=== PATIENT | male | born 1960 | race Caucasian/White ===

== ENCOUNTER 2021-05-01 18:01 | Inpatient (IN) | payer BC, SELFPAY ==
--- NOTE | ~2021-05-01 | XR_ITS ---
EXAMINATION: XR chest 2V DATE: 05/03/2021 13:12 INDICATION: Hypoxia. TECHNIQUE: Frontal and lateral views of the chest were obtained. COMPARISON: Chest 2 views 05/01/21 FINDINGS: Again seen is mild elevation of right hemidiaphragm. No pneumonia, pleural effusion, or pne umothorax. Cardiomegaly is noted. IMPRESSION: 1. Cardiomegaly. Reviewed, dictated and finalized at location A. IMPRESSION: 1. Cardiomegaly.
--- NOTE | ~2021-05-01 | XR_ITS ---
XR chest 2V 05/01/2021 18:46 Indication: Shortness of breath for one week. History of [place]. COPD. Atrial fibrillation. Procedure: PA and lateral views of the chest Comparison: 09/24/2008 Findings: Cardiomegaly. Mild interstitial edema. Superimposed pneumonia not excluded. No pleural effu tiffani. Elevated right diaphragm. No pneumothorax. Impression: 1: Cardiomegaly with mild interstitial edema. Cannot exclude superimposed pneumonia. Reviewed, dictated and finalized at location A. Impression: 1: Cardiomegaly with mild interstitial edema. Cannot exclude superimposed pneum onia.
--- NOTE | 2021-05-01 18:03 | ECG_ITS ---
Measurements Intervals [place] Rate: 89 P: DC: 0 QRS: 157 QRSD: 38 T: 37 QT: 303 QTc: 370 Interpretive Statements ATRIAL FIBRILLATION WITH RAPID VENTRICULAR RESPONSE INCOMPLETE RIGHT BUNDLE BRANCH BLOCK LOW QRS VOLTAGE IN PRECORDIAL LEADS BORDERLINE T WAVE ABNORMALITY- INFERIOR LEADS BASELINE ARTIFACT- II, III, AVR, AVL, V1, V3-V5 ABNORMAL ECG Electronically Signed On 05-01-2021 20:38:11 CDT by Ar CHAVEZ
[2021-05-01 18:07] VITALS: BP 166/101; PULSE 71; RESP 20; TEMP 36.8; O2SAT 96
[2021-05-01 18:30] LABS: Basophils Absolute Auto 0.1 K/mm3 (0.0-0.1); Basophils Percent Auto 0.9 % (0.2-1.2); Eosinophils Absolute Auto 0.2 K/mm3 (0-0.3); Eosinophils Percent Auto 2.3 % (0-4.4); Hematocrit 44.7 % (42.0-52.0); Hemoglobin 14.1 g/dL (14.0-18.0); Immature Granulocyte Absolute 0.03 K/mm3 (0.00-0.031); Immature Granulocyte Percent A 0.4 % (0-0.5); Lymphocytes Absolute Auto 1.48 K/mm3 (0.9-3.2); Lymphocytes Percent Auto 19.1 % (18.3-44.2); Mean Corpuscular HGB Conc 31.5 g/dl (32-36); Mean Platelet Volume 11.6 fl (7.4-10.4); Monocytes Absolute Auto 0.4 K/mm3 (0.1-0.6); Monocytes Percent Auto 5.4 % (2.6-8.5); Neutrophils Absolute Auto 5.6 K/mm3 (1.3-6.7); Neutrophils Percent Auto 71.9 % (45.5-73.1); Platelet Count Result 208 k/mm3 (150-375); Red Blood Count 4.86 M/mm3 (4.6-6.20); Red Cell Distribution Width 15.1 % (11.5-14.5); White Blood Count 7.8 K/mm3 (4.5-10.0)
[2021-05-01 18:40] LABS: Anion Gap 11 mmol/L (8-16); Blood Urea Nitrogen 29 mg/dL (9-20); Calcium 9.6 mg/dL (8.4-10.2); Carbon Dioxide 25 mmol/L (22-30); Chloride 104 mmol/L (98-107); Estimated CRCL calculation 91 ml/min; Estimated Glomerular Filt Rate > 60; Glucose 132 mg/dL (65-110); Potassium 3.9 mmol/L (3.4-5.0); Sodium 140 mmol/L (137-145)
[2021-05-01 19:56] VITALS: BP 144/86; PULSE 113; RESP 22; TEMP 36.4; O2SAT 94
[2021-05-01 20:35] VITALS: BP 136/105; PULSE 130; O2SAT 95
[2021-05-01 21:13] VITALS: BP 139/98; PULSE 117; RESP 26; O2SAT 96
[2021-05-01] MEDS: SODIUM CHLORIDE 0.9% IV 500 ML 999 ML IV CONT (21:15)
[2021-05-01] MEDS: METOPROLOL TARTRATE INJ 5 MG/5 ML VIAL IV PUSH (21:16)
--- NOTE | 2021-05-01 21:22 | ED.SOB ---
HPI - SOB/Dyspnea General Chief Complaint: Shortness of Breath/Dyspnea Stated Complaint: sob Time Seen by Provider: 05/01/21 20:56 History of Present Illness HPI Narrative: Patient presents with shortness of breath. Pain for shortness of breath been present for approximately 1 week. Per symptoms and progressively worse last night is unable to sleep so he came in for evaluation today. Reports a history of paroxysmal A. fib and felt his heart rate was fast today is concerned he is in A. fib again. He denies any focal chest pain, lightheadedness, recent fevers, cough, congestion. Denies any abdominal pain. Related Data Home Medications Medication Instructions Recorded Confirmed aspirin 81 mg tablet,delayed 81 mg PO DAILY 10/29/19 05/02/21 release fenofibric acid (choline) 135 mg PO HS 05/01/21 05/02/21 metformin 500 mg PO HS 05/01/21 05/02/21 ramipril 10 mg PO DAILY 05/01/21 05/02/21 rivaroxaban [Xarelto] 20 mg PO HS 05/01/21 05/01/21 simvastatin 20 mg PO HS 05/01/21 05/02/21 Allergies Allergy/AdvReac Type Severity Reaction Status Date / Time Tetanus Vaccines and Toxoid Allergy Mild Rash Verified 02/28/21 10:53 Review of Systems Review of Systems: CONSTITUTIONAL: Denies fever, chills, or sweats. EYES: Denies visual changes, redness, or discharge. ENT: Denies rhinorrhea, congestion, sore throat, or otalgia. CARDIOVASCULAR: Denies chest pain, palpitations, or edema. RESPIRATORY: Denies cough. GASTROINTESTINAL: Denies abdominal pain, nausea, vomiting, or diarrhea. GENITOURINARY: Denies dysuria or hematuria. SKIN: Denies rash or itching. MUSCULOSKELETAL: Denies back pain, joint pain, or myalgia. NEUROLOGIC: Denies headache, numbness, dizziness, or weakness. PSYCHIATRIC: Denies anxiety or depression. All systems reviewed & are unremarkable except as noted in HPI and below [facility] Past Medical History Medical History (Updated 05/02/21 @ 05:40 by Emma Brady DO) Diastolic dysfunction Echocardiogram October 2020: EF 69%, severe left atrial enlargement, grade 1 diastolic dysfunction Essential (primary) hypertension Morbid obesity with BMI of 40.0-44.9, adult Obstructive sleep apnea CPAP of 20 Paroxysmal A-fib (10/2020) Prediabetes Umbilical hernia without obstruction or gangrene Not repaired Surgical History Surgical History (Updated 05/02/21 @ 05:35 by Emma Brady DO) History of cardiac catheterization Two stents placed [address] Bright History of tonsillectomy and adenoidectomy Family History Family History (Updated 05/02/21 @ 05:36 by Emma Brady DO) Grandparent Family history of alcoholism Family history of hepatitis Mother Acute myocardial infarction, Onset Age: 72 Father Primary bone cancer, Onset Age: 72 Social History Social History (Updated 05/02/21 @ 05:29 by Emma Brady DO) Social History: He lives in [place] with his . He is a CPA. He used to smoke a pack of cigarettes per day but quit 2008 when he had his heart attack. He used to drink quite heavily in consumed a case of beer over the weekend but quit drinking in 2008 as well. He denies any illicit substance use. Primary care physician: Dr. Vicente Salgado Code status: Full code Surrogate decision maker: Smoking packs per day: 1 Smoking cigarettes per day: 20.0 Years smoked: 30 Smoking pack-years: 30.00 Smoking status: Former smoker Smoking end date: 08/25/07 Alcohol intake: former Substance use: never Other substance usage details: quit drinking in 2008 Spiritual care concerns: No Exam Narrative: GENERAL: Well-appearing, well-nourished, and in no acute distress. HEAD: Normocephalic, atraumatic. EYES: PERRLA and EOMI. ENT: Nares clear, no rhinorrhea or epistaxis. Mucous membranes moist. NECK: Supple. No masses. No JVD CHEST: Clear to auscultation. No respiratory distress. No wheezes rales or rhonchi HEART:
[2021-05-01] MEDS: dilTIAZem HCl INJ 25 MG/5 ML VIAL 10 MG IV PUSH (22:28)
[2021-05-01 22:29] VITALS: BP 112/85; PULSE 110
[2021-05-01 22:33] VITALS: BP 112/85; PULSE 119; RESP 18
[2021-05-01 22:55] LABS: Troponin I < 0.012 ng/mL (0.000-0.034)
[2021-05-02] VITALS (21 sets, daily range): BP systolic 116–149; BP diastolic 71–117; PULSE 88–132; RESP 16–24; TEMP 35.5–36.9; O2SAT 92–99; BMI 49.9
--- NOTE | 2021-05-02 02:02 | ADMGEN ---
This patient, Juan Ariza, was admitted to IMU Room 214-01. Patient/family oriented to hospital policies and general routines including ID bracelet, bed and alarms, visiting hours, pain management, procedures, bathroom and other care routines, personal items, smoking policy, room service/diet, and visiting hours. Information on how to activate the Rapid Response Team has been discussed. Patient/Family are encouraged to report perceived risks to care and to ask questions if they do not understand what they are told or what they should do. report Gerald ST approx [id number]
[2021-05-02 03:03] LABS: Troponin I < 0.012 ng/mL (0.000-0.034)
--- NOTE | 2021-05-02 04:24 | PM.IMHP ---
H&P: HPI History of Present Illness Date/Time: 05/02/21 04:24 Chief Complaint: Shortness of breath Narrative: 60-year-old male with past medical history of paroxysmal atrial fibrillation, coronary artery disease, diastolic dysfunction, morbid obesity and obstructive sleep apnea who presented to the ER with shortness of breath. He reports dyspnea worse with exertion for the last week. He has developed orthopnea over the last couple of days which has made it difficult for him to sleep and he so he decided to come to the ER for evaluation. He had not been checking his blood pressure pulse but checked it before coming to the ER and noted that his heart rate was high. His who is a retired nurse insisted that he come in for evaluation. He denies any chest pain, palpitations or lower extremity swelling. He does not check his weight. He has been compliant with his home beta-aravind and Xarelto. He has not missed any doses. He has not had any fevers or chills. He received his Pfizer COVID vaccine in September and October. Review of Systems Review of Systems: 12 systems were reviewed with pertinent positives and negatives per HPI. Except as documented in the HPI, all other systems were reviewed and are negative. [facility] Past Medical History Medical History (Updated 05/02/21 @ 05:27 by Emma Brady DO) Diastolic dysfunction Essential (primary) hypertension Morbid obesity with BMI of 40.0-44.9, adult Obstructive sleep apnea CPAP of 20 Paroxysmal A-fib Prediabetes Umbilical hernia without obstruction or gangrene Surgical History Surgical History (Updated 05/02/21 @ 04:29 by Emma Brady DO) History of cardiac catheterization Family History Family History Grandparent Family history of alcoholism Family history of hepatitis Social History Social History (Updated 05/02/21 @ 05:29 by Emma Brady DO) Social History: He lives in [place] with his . He is a CPA. He used to smoke a pack of cigarettes per day but quit 2008 when he had his heart attack. He used to drink quite heavily in consumed a case of beer over the weekend but quit drinking in 2008 as well. He denies any illicit substance use. Primary care physician: Dr. Vicente Salgado Code status: Full code Surrogate decision maker: Smoking packs per day: 1 Smoking cigarettes per day: 20.0 Years smoked: 30 Smoking pack-years: 30.00 Smoking status: Former smoker Smoking end date: 08/25/07 Alcohol intake: former Substance use: never Other substance usage details: quit drinking in 2008 Spiritual care concerns: No Meds Home Medications and Allergies Home Medications Medication Instructions Recorded Confirmed Type aspirin 81 mg tablet,delayed 81 mg PO DAILY 10/29/19 05/02/21 History release hydrochlorothiazide 12.5 mg tablet 12.5 mg PO DAILY #90 tablet 01/12/21 05/02/21 Rx metoprolol tartrate 25 mg tablet 25 mg PO DAILY #180 tablet 02/12/21 05/02/21 Rx fenofibric acid (choline) 135 mg PO HS 05/01/21 05/02/21 History metformin 500 mg PO HS 05/01/21 05/02/21 History ramipril 10 mg PO DAILY 05/01/21 05/02/21 History rivaroxaban [Xarelto] 20 mg PO HS 05/01/21 05/01/21 History simvastatin 20 mg PO HS 05/01/21 05/02/21 History Allergies Allergy/AdvReac Type Severity Reaction Status Date / Time Tetanus Vaccines and Toxoid Allergy Mild Rash Verified 02/28/21 10:53 Vital Signs Vital Signs - 24 hr 05/01/21 18:07 05/01/21 19:56 05/01/21 20:35 Temperature 98.2 F 97.5 F L Pulse Rate 71 113 H 130 H Respiratory Rate 20 22 H Blood Pressure 166/101 H 144/86 H 136/105 H Pulse Oximetry 96 94 95 05/01/21 21:13 05/01/21 22:29 05/01/21 22:33 Temperature Pulse Rate 117 H 110 H 119 H Respiratory Rate 26 H 18 Blood Pressure 139/98 H 112/85 112/85 Pulse Oximetry 96 05/02/21 00:10 05/02/21 01:27 05/02/21 01:56 Temperature 98.0 F
[2021-05-02 05:42] LABS: Anion Gap 9 mmol/L (8-16); Blood Urea Nitrogen 25 mg/dL (9-20); Calcium 9.1 mg/dL (8.4-10.2); Carbon Dioxide 24 mmol/L (22-30); Chloride 104 mmol/L (98-107); Estimated CRCL calculation 110 ml/min; Estimated Glomerular Filt Rate > 60; Glucose 100 mg/dL (65-110); Magnesium 1.6 mg/dL (1.6-2.3); Potassium 3.6 mmol/L (3.4-5.0); Sodium 137 mmol/L (137-145)
[2021-05-02 05:46] LABS: Troponin I < 0.012 ng/mL (0.000-0.034)
[2021-05-02] MEDS: FUROSEMIDE INJ 40 MG/4 ML VIAL IV PUSH (06:55)
[2021-05-02] MEDS: METOPROLOL TARTRATE 25 MG TABLET PO (10:11)
[2021-05-02] MEDS: ASPIRIN 81 MG ENTERIC TABLET PO (10:12)
[2021-05-02] MEDS: ramipriL 5 MG CAPSULE 10 MG PO (10:12)
[2021-05-02] MEDS: SODIUM CHLORIDE 0.9% IV 1,000 ML 125 ML IV CONT (10:14)
--- NOTE | 2021-05-02 12:25 | PM.CNCAR ---
Assessment and Plan Additional Plan 60-year-old man with more remote history of coronary disease also with a history of morbid obesity sleep apnea and paroxysmal atrial fibrillator he had a has a symptomatic recurrence of atrial fib. I would recommend advancing his antiarrhythmic treatment from standard metoprolol to sotalol. I will start that as soon as possible hopefully after a couple of doses of sotalol he will convert back to sinus rhythm. Systemic anticoagulation with Xarelto is already on board. If he does not convert within a couple of days of starting sotalol we will do an electrical cardioversion before the end of the week. Vicente Bright MD [facility] History of Present Illness History of Present Illness Consult date/time: 05/02/21 12:25 Consult reason: atrial fibrillation Reason For Visit: Afib w/ RVR Narrative: This is a 60-year-old man who I am well familiar with with a history of coronary disease and atrial fibrillation. I am seeing him today at the request of the hospitalist because of a symptomatic recurrence of atrial fib. He states that he was in his usual state of what he thinks is rather good health when of but a week ago he started to notice increasing exertional shortness of breath particularly with activities as stair climbing at home he will become were rather short of breath at the top of the staircase. He was not really aware of his pulse being irregular but because of this he came to the emergency room. He was found to have atrial fib with a moderately rapid ventricular response he was of course placed on intravenous diltiazem and admitted to the hospital. Patient has a history of atrial fibrillation and has been treated with metoprolol and Xarelto as an outpatient. He has a history of coronary artery disease with previous inferior wall infarction treated with angioplasty and stenting of his right coronary artery in . He failed follow-up for a number of years but had an episode of atrial fibrillation in 2020. He was placed on metoprolol and Xarelto he has been back in sinus rhythm and has been doing well he was last seen by me in the office in November of this year which time he was in sinus rhythm and had no complaints. His other principal comorbidity is morbid obesity and sleep apnea. He reports to be compliant with his CPAP. He is concerned that despite the fact that he request of what he had did not receive a CPAP device in his room last night and so he hardly get any sleep. Review of Systems Constitutional: Constitutional: Reports no additional constitutional complaints Eyes: Eyes: Reports no additional eye complaints ENT: Reports system reviewed and no additional complaints, except as documented Cardiovascular: Cardiovascular: Reports as per HPI Respiratory: Respiratory: Reports as per HPI Gastrointestinal: Gastrointestinal: Reports no additional gastrointestinal complaints Musculoskeletal: Musculoskeletal: Reports no additional musculoskeletal complaints Integumentary/Breasts: Skin/Breast: Reports system reviewed and no additional complaints, except as docu Neurologic: Reports system reviewed and no additional complaints, except as documented Psychiatric: Psychiatric: Reports no additional psychiatric complaints Endocrine: Endocrine: Reports no additional endocrine complaints Hematologic/Lymphatic: Hematologic/Lymphatic: Reports no additional hematologic/lymphatic complaints Allergic/Immunologic: Allergic/Immunologic: Reports no additional allergic/immunologic complaints [facility] Past Medical History Medical History (Updated 05/02/21 @ 05:40 by Emma Brady, DO) Diastolic dysfunction Echocardiogram October 2020: EF 69%, severe left atrial enlargement, grade 1 diastolic dysfunction Essential (primary) hypertension Morbid obesity with BMI of 40.0-44.9, adult Obstructive sleep apnea CPAP of 20 Paroxysmal A-fib (10/2020) Prediabetes Umbilical hernia without obstruction or gangrene Not re
[2021-05-02] MEDS: SOTALOL HCL 80 MG TABLET PO ×2 (13:38→20:22)
--- NOTE | 2021-05-02 14:05 | PM.IMPN ---
Progress Note: A&P Assessment and Plan (1) Atrial fibrillation with RVR: Code(s): I48.91 - Unspecified atrial fibrillation Status: Acute Assessment and Plan: Patient presents to the ED with complaints of SOB and found to have AFib/RVR. EKG confirned AFib. He was given Diltiazem 10mg once then on a Cardizem drip. Heart rate improved. He has been compliant with his Xarelto. He was also continued on his metoprolol. He was admitted to the IMU. He was seen by Cardiology. After the risks/benefits discussed, his Metoprolol was changed to Sotalol. Xarelto has been continued. Patient had recent echocardiogram as outpatient so no need to repeat. Check TSH (2) Pulmonary edema: Code(s): J81.1 - Chronic pulmonary edema Status: Acute Assessment and Plan: CXR on admission showing cardiomegaly with mild interstitial edema. Concern for high-output heart failure from recurrent paroxysmal atrial fibrillation. He was given one dose of IV Lasix on admission. He is stable and lying flat in bed. He is on IV fluids which we will stop since he is eating well. (3) Obstructive sleep apnea: Code(s): G47.33 - Obstructive sleep apnea (adult) (pediatric) Status: Acute Assessment and Plan: Stable. Auto titrating NIV has been ordered. (4) Essential (primary) hypertension: Code(s): I10 - Essential (primary) hypertension Status: Acute Assessment and Plan: Patient's blood pressure was reviewed on 05/02 Blood pressure reasonably well controlled. HCTZ on hold due to the need for possible higher beta aravind dosing. Will continue current medications. Resume HCTZ if needed. (5) Morbid obesity with BMI of 40.0-44.9, adult: Code(s): E66.01 - Morbid (severe) obesity due to excess calories; Z68.41 - Body mass index [BMI]40.0-44.9, adult Status: Acute Assessment and Plan: BMI 50. This complicates his other medical problems. Healthy lifestyle encouraged. (6) DVT prophylaxis: Code(s): Z29.9 - Encounter for prophylactic measures, unspecified Status: Acute Assessment and Plan: Xarelto Subjective Date/time seen: 05/02/21 14:05 Interval history: 60yo male with SAI, morbid obesity and pAFib here for shortness of breath and found to have recurrent AFib/RVR No complaints. No CP. SOB resolved. Has not been up much. Did not have the NIV available last night. Eating normally without n/v. Compliant with medications at home. No exposures to COVID. Had COVID vaccine in September. No anosmia or dysgeusia. Exam Narrative: AF 97.5 127/94 99 20 92 Gen - NARD lying flat in bed Chest - few basilar rhonchi, nml RR CV - irregular; Tele showing AFib with RVR; HR better Abd - Soft, obese, NT, glenroy-umbilical hernia noted that was easily reducible Ext - No pitting pedal edema Neuro - Alert and oriented. Nonfocal exam. Psych - Nml mood and affect Skin - Warm and dry Objective Data Vital Signs Vital Signs: Vital Signs - 24 hr 05/01/21 18:07 05/01/21 19:56 05/01/21 20:35 Temperature 98.2 F 97.5 F L Pulse Rate 71 113 H 130 H Respiratory Rate 20 22 H Blood Pressure 166/101 H 144/86 H 136/105 H Pulse Oximetry 96 94 95 05/01/21 21:13 05/01/21 22:29 05/01/21 22:33 Temperature Pulse Rate 117 H 110 H 119 H Respiratory Rate 26 H 18 Blood Pressure 139/98 H 112/85 112/85 Pulse Oximetry 96 05/02/21 00:10 05/02/21 01:27 05/02/21 01:56 Temperature 98.0 F Pulse Rate 103 H 108 H 132 H Respiratory Rate 18 24 H 20 Blood Pressure 135/100 H 147/115 H 146/117 H Pulse Oximetry 94 94 94 05/02/21 02:00 05/02/21 04:00 05/02/21 06:00 Temperature 98.0 F Pulse Rate 98 107 H 116 H Respiratory Rate 18 Blood Pressure 116/71 Pulse Oximetry 99 05/02/21 08:00 05/02/21 08:19 05/02/21 10:00 Temperature 97.5 F L Pulse Rate 108 H 95 93 Respiratory Rate 24 H Blood Pressure 131/94 H Pulse Oximetry 92 05/02/21 10:11 09/0
--- NOTE | 2021-05-02 16:07 | ECG_ITS ---
Measurements Intervals [place] Rate: 84 P: 31 SC: 234 QRS: 21 QRSD: 89 T: 21 QT: 381 QTc: 453 Interpretive Statements ATRIAL FIBRILLATION INCOMPLETE RIGHT BUNDLE BRANCH BLOCK LOW QRS VOLTAGE IN PRECORDIAL LEADS BORDERLINE ST-T WAVE ABNORMALITY- ANTERIOR LEADS BASELINE ARTIFACT- I, III, AVL ABNORMAL ECG Electronically Signed On 05-03-2021 10:02:24 CDT by Ar Cuadra D.O.
[2021-05-02] MEDS: MAGNESIUM OXIDE 400 MG TABLET PO (16:24)
--- NOTE | 2021-05-02 16:32 | PC.NURSE ---
This patient, Juan Ariza, was received from IMU on 05/02/21 at 1632. Patient/family oriented to unit policies and routines
--- NOTE | 2021-05-02 16:37 | PC.NURSE ---
This patient, Juan Ariza, was transferred to [facility] on 05/02/21 at 1638. Personal belongings sent with patient. Report given to MACIEL Dumas. Appropriate documentation sent with patient.
[2021-05-02] MEDS: FENOFIBRATE NANOCRYSTALLIZED 145 MG TABLET PO (20:22)
[2021-05-02] MEDS: metFORMIN HCL 500 MG TABLET PO (20:22)
[2021-05-02] MEDS: RIVAROXABAN 20 MG TABLET PO (20:22)
[2021-05-02] MEDS: SIMVASTATIN 20 MG TABLET PO (20:22)
--- NOTE | 2021-05-02 22:52 | ECG_ITS ---
Measurements Intervals [place] Rate: 105 P: RI: 0 QRS: 21 QRSD: 94 T: 28 QT: 353 QTc: 467 Interpretive Statements ATRIAL FIBRILLATION WITH RAPID VENTRICULAR RESPONSE DELAYED PRECORDIAL R/S TRANSITION LOW QRS VOLTAGE IN PRECORDIAL LEADS BASELINE ARTIFACT- I, III, AVR, AVL, AVF, V4-V6 ABNORMAL ECG Electronically Signed On 05-03-2021 8:27:50 CDT by Ar Cuadra D.O.
[2021-05-03] VITALS (14 sets, daily range): BP systolic 129–162; BP diastolic 87–129; PULSE 82–122; RESP 16–23; TEMP 36.1–36.7; O2SAT 90–92
[2021-05-03 07:23] LABS: Anion Gap 9 mmol/L (8-16); Blood Urea Nitrogen 29 mg/dL (9-20); Carbon Dioxide 25 mmol/L (22-30); Chloride 104 mmol/L (98-107); Estimated CRCL calculation 110 ml/min; Estimated Glomerular Filt Rate > 60; Glucose 99 mg/dL (65-110); Sodium 138 mmol/L (137-145)
--- NOTE | 2021-05-03 07:38 | ECG_ITS ---
Measurements Intervals [place] Rate: 92 P: ND: 0 QRS: 15 QRSD: 113 T: 13 QT: 383 QTc: 476 Interpretive Statements ATRIAL FIBRILLATION INCOMPLETE RIGHT BUNDLE BRANCH BLOCK LOW QRS VOLTAGE IN PRECORDIAL LEADS BORDERLINE T WAVE ABNORMALITY- ANT/INF LEADS BASELINE ARTIFACT- I, II, AVR ABNORMAL ECG Electronically Signed On 05-03-2021 8:27:41 CDT by Ar Cuadra D.O.
[2021-05-03] MEDS: ramipriL 5 MG CAPSULE 10 MG PO (08:21)
[2021-05-03] MEDS: ASPIRIN 81 MG ENTERIC TABLET PO (08:21)
[2021-05-03] MEDS: MAGNESIUM OXIDE 400 MG TABLET PO (08:21)
[2021-05-03] MEDS: SOTALOL HCL 80 MG TABLET PO ×2 (08:22→21:05)
--- NOTE | 2021-05-03 10:20 | ECG_ITS ---
Measurements Intervals [place] Rate: 102 P: [place]: 0 QRS: 1 QRSD: 101 T: 11 QT: 381 QTc: 497 Interpretive Statements ATRIAL FIBRILLATION WITH RAPID VENTRICULAR RESPONSE INCOMPLETE RIGHT BUNDLE BRANCH BLOCK DELAYED PRECORDIAL R/S TRANSITION LOW QRS VOLTAGE IN PRECORDIAL LEADS BASELINE ARTIFACT- I, II, AVR, AVF ABNORMAL ECG Electronically Signed On 05-03-2021 10:52:30 CDT by Ar Cuadra D.O.
--- NOTE | 2021-05-03 10:56 | PM.IMPN ---
Progress Note: A&P Assessment and Plan (1) Atrial fibrillation with RVR: Code(s): I48.91 - Unspecified atrial fibrillation Status: Acute Assessment and Plan: Patient has a hx of AFib and is on Xarelto and Metoprolol. Patient presents to the ED with complaints of SOB and found to have AFib/RVR. EKG confirmed AFib. He was given Diltiazem 10mg once then on a Cardizem drip. Heart rate improved. He has been compliant with his Xarelto and his metoprolol. He was admitted to the IMU. TSH normal. He was seen by Cardiology. After the risks/benefits discussed, his Metoprolol was changed to Sotalol and diltiazem stopped. Xarelto has been continued. Patient had recent echocardiogram as outpatient so no need to repeat. EKG reviewed from today with AFib and QTc 476 (2nd EKG today showing QTc 497 now). (2) Pulmonary edema: Code(s): J81.1 - Chronic pulmonary edema Status: Acute Assessment and Plan: CXR on admission showing cardiomegaly with mild interstitial edema. Concern for high-output heart failure from recurrent paroxysmal atrial fibrillation. He was given one dose of IV Lasix on admission. He is stable while awake but needs O2 at night presumably. He was on IV fluids which was stopped. Repeat CXR. (3) Obstructive sleep apnea: Code(s): G47.33 - Obstructive sleep apnea (adult) (pediatric) Status: Acute Assessment and Plan: Stable. Auto titrating NIV has been ordered. He presumably had hypoxia overnight requiring O2 bleed in but do not see this documented. Will discuss with respiratory therapist to determine who about to test for this. Most likely will need apnea link with CPAP in place to monitor for hypoxia. If hypoxia noted, then will need to set up home O2 at discharge. Repeat CXR to exclude other reasons for hypoxia. (4) Essential (primary) hypertension: Code(s): I10 - Essential (primary) hypertension Status: Acute Assessment and Plan: Patient's blood pressure was reviewed on 05/03 Blood pressure elevated at times. HCTZ on hold due to the need for possible higher BP. Will continue current medications and resume HCTZ. (5) Morbid obesity with BMI of 40.0-44.9, adult: Code(s): E66.01 - Morbid (severe) obesity due to excess calories; Z68.41 - Body mass index [BMI]40.0-44.9, adult Status: Acute Assessment and Plan: BMI 50. This complicates his other medical problems. Healthy lifestyle encouraged. (6) DVT prophylaxis: Code(s): Z29.9 - Encounter for prophylactic measures, unspecified Status: Acute Assessment and Plan: [place] Subjective Date/time seen: 05/03/21 10:56 Interval history: 60yo male with SAI, morbid obesity and pAFib here for shortness of breath and found to have recurrent AFib/RVR No complaints today. No SOB or VICENTE. No CP. He did have hypoxia overnight requiring O2 bleed in per patient. Eating well Exam Narrative: AF 97.4 129/93 92 20 91% ra Gen - NARD lying semi-recumbent in bed Chest - few basilar rhonchi o/w clear, nml RR CV - irregularly irregular; Tele showing AFib with occasional RVR but HR better controlled overall Abd - Soft, obese, NT, large glenroy-umbilical hernia noted Ext - No pitting pedal edema Psych - Nml mood and affect Skin - Warm and dry Objective Data Vital Signs Vital Signs: Vital Signs - 24 hr 05/02/21 12:00 05/02/21 12:18 05/02/21 13:38 Temperature 97.5 F L Pulse Rate 102 H 112 H 99 Respiratory Rate 20 Blood Pressure 127/94 H Pulse Oximetry 92 05/02/21 14:00 05/02/21 16:00 05/02/21 16:42 Temperature 96 F L Pulse Rate 105 H 95 91 Respiratory Rate 22 H Blood Pressure 149/94 H Pulse Oximetry 92 05/02/21 18:00 05/02/21 20:00 05/02/21 20:22 Temperature 97.8 F Pulse Rate 106 H 88 93 Respiratory Rate 16 Blood Pressure 132/93 H Pulse Oximetry 92 05/02/21 21:09 05/02/21 23:07 05/03/21 02:00 Temperature 98.5 F Pulse
--- NOTE | 2021-05-03 12:54 | PC.NURSE ---
1100 Dr Weeks here to see patient, informed her of c/o chest pain
--- NOTE | 2021-05-03 13:13 | PM.PNCARD ---
Progress Note: A&P Assessment and Plan (1) Paroxysmal A-fib: Onset Date: 10/2020 Code(s): I48.0 - Paroxysmal atrial fibrillation Status: Acute Assessment and Plan: Recurrent AFib RVR. Being loaded with sotalol. Heart rate has improved. Plan a cardioversion tomorrow with the assistance of anesthesia if he remains in AFib. (2) Medication monitoring encounter: Code(s): Z51.81 - Encounter for therapeutic drug level monitoring Status: Acute Assessment and Plan: Continue to follow QT interval with sotalol, as it is associated with proarrhythmic effects. QT interval by a computer EKG reading was prolonged today but on my personal review it looked good/normal so I think it is reasonable to continue sotalol loading. If the QT interval prolongs further we may need to discontinue the medication. (3) Breath shortness: Code(s): R06.02 - Shortness of breath Status: Acute Assessment and Plan: Admitted with shortness of breath and chest x-ray shows some interstitial edema/acute diastolic CHF which has resolved on today's chest x-ray. EF 69% in October 2020 (4) Essential (primary) hypertension: Code(s): I10 - Essential (primary) hypertension Status: Acute Assessment and Plan: Improving. (5) CAD (coronary artery disease): Code(s): I25.10 - Atherosclerotic heart disease of [place] coronary artery without angina pectoris Status: Acute Assessment and Plan: Stable. (6) Obstructive sleep apnea: Code(s): G47.33 - Obstructive sleep apnea (adult) (pediatric) Status: Acute Assessment and Plan: Subjective Date/time seen: 05/03/21 13:13 Interval history: Follow-up for persistent atrial fibrillation, on sotalol loading. Date of service 05/03/2021: Feels better, breathing is better. Says he is sikh about taking his Xarelto has not missed any doses. No side effects from sotalol. Hopes to go home soon. Up and about in his room. Chest x-ray 05/03/2021 has not yet been read on my personal review the interstitial edema has resolved. EKG 05/03/2021 at 8:09 a.m. shows AFib rate 92, QT interval 383 milliseconds, QTC 476 milliseconds. EKG 05/03/2021 at 10:30 a.m. shows AFib rate 102, QT interval was 381 milliseconds a QTC of 497 which is a bit high. However on my personal review of the EKG the QT interval appears normal. Review of Systems Constitutional: Constitutional: Denies fatigue and Denies weakness ENT: Reports Normal hearing present Cardiovascular: Cardiovascular: Denies chest pain and Denies palpitations Respiratory: Respiratory: Denies dyspnea and Denies dyspnea on exertion Gastrointestinal: Gastrointestinal: Denies abdominal pain Genitourinary: Genitourinary: Denies dysuria Musculoskeletal: Musculoskeletal: Reports no additional musculoskeletal complaints Integumentary/Breasts: Skin/Breast: Reports system reviewed and no additional complaints, except as docu Neurologic: Reports system reviewed and no additional complaints, except as documented Psychiatric: Psychiatric: Reports no additional psychiatric complaints Exam Const: General: comfortable and no acute distress HENMT: Mouth: Yes moist mucous membranes Eyes: EOM: EOMs intact bilaterally Neck: Neck: supple Resp: Effort & Inspection: normal respiratory effort Auscultation: clear to auscultation bilaterally Cardio: Rhythm: abnormal rhythm irregularly irregular GI: GI Palp: Yes Soft to palpation Skin: General skin exam: normal color Neuro: Cognition (Neuro): normal cognition Speech: normal speech Extrem: General: edema (Trace pretibial edema) Psych: M
--- NOTE | 2021-05-03 15:16 | WPDANESEPP ---
Anes - Eval Pre Procedure Procedure: Operation Date: 05/04/21 10:30 Proposed Procedures p Electrical Cardioversion - Vicente Bright MD Date/Time: 05/03/21 15:16 Surgeon: Kaila Preop Diagnosis: Atrial fibrillation with RVR Pre Op Diagnosis: Afib w/ RVR Patient Data Age: 60 Gender: M Height: 1.83 m Weight: 167 kg Last Vital Signs Temp 36.1 C L 05/03/21 12:00 Pulse 102 H 05/03/21 14:00 Resp 22 H 05/03/21 12:00 BP 130/97 H 05/03/21 12:00 Pulse Ox 90 05/03/21 12:00 Allergies Allergy/AdvReac Type Severity Reaction Status Date / Time Tetanus Vaccines and Toxoid Allergy Mild Rash Verified 02/28/21 10:53 Home Medications Medication Instructions Recorded Confirmed Type aspirin 81 mg tablet,delayed 81 mg PO DAILY 10/29/19 05/02/21 History release hydrochlorothiazide 12.5 mg tablet 12.5 mg PO DAILY #90 tablet 01/12/21 05/02/21 Rx metoprolol tartrate 25 mg tablet 25 mg PO DAILY #180 tablet 02/12/21 05/02/21 Rx fenofibric acid (choline) 135 mg PO HS 05/01/21 05/02/21 History metformin 500 mg PO HS 05/01/21 05/02/21 History ramipril 10 mg PO DAILY 05/01/21 05/02/21 History rivaroxaban [Xarelto] 20 mg PO HS 05/01/21 05/01/21 History simvastatin 20 mg PO HS 05/01/21 05/02/21 History Laboratory Tests 05/03/21 05/03/21 06:29 06:29 Sodium 138 mmol/L mmol/L (137-145) Potassium 4.0 mmol/L mmol/L (3.4-5.0) Chloride 104 mmol/L mmol/L (98-107) Carbon Dioxide 25 mmol/L mmol/L (22-30) Anion Gap 9 mmol/L mmol/L (8-16) BUN 29 mg/dL H mg/dL (9-20) Creatinine 1.00 mg/dL mg/dL (0.7-1.3) Estim Creat Clear Calc 110 ml/min ml/min Estimated GFR > 60 (59 - ) Glucose 99 mg/dL mg/dL (65-110) Calcium 9.0 mg/dL mg/dL (8.4-10.2) Magnesium 2.0 mg/dL mg/dL (1.6-2.3) TSH (Reflex) 1.620 uIU/mL uIU/mL (0.465-4.68) ECG: A fib 101 Patient hx anesthesia problems: none Family hx anesthesia problems: none PMFSH Past Medical History Medical History CAD (coronary artery disease) Diastolic dysfunction Echocardiogram October 2020: EF 69%, severe left atrial enlargement, grade 1 diastolic dysfunction Essential (primary) hypertension Morbid obesity with BMI of 40.0-44.9, adult Obstructive sleep apnea CPAP of 20 Paroxysmal A-fib (10/2020) Prediabetes Umbilical hernia without obstruction or gangrene Not repaired Surgical History Surgical History History of cardiac catheterization Two stents placed [address] Bright History of tonsillectomy and adenoidectomy Family History Family History Grandparent Family history of alcoholism Family history of hepatitis Mother Acute myocardial infarction, Onset Age: 72 Father Primary bone cancer, Onset Age: 72 Social History Social History Social History: He lives in [place] with his . He is a CPA. He used to smoke a pack of cigarettes per day but quit 2008 when he had his heart attack. He used to drink quite heavily in consumed a case of beer over the weekend but quit drinking in 2008 as well. He denies any illicit substance use. Primary care physician: Dr. Vicente Salgado Code status: Full code Surrogate decision maker: Smoking packs per day: 1 Smoking cigarettes per day: 20.0 Years smoked: 30 Smoking pack-years: 30.00 Smoking status: Former smoker Smoking end date: 08/25/07 Alcohol intake: former Substance use: never Other substance usage details: quit drinking in 2008 Spiritual care concerns: No Exam Day of Procedure 05/03/21 15:16 Patient weight: morbidly obese Heart: irregular rhythm Lungs: normal air movement Airway: Mallam
--- NOTE | 2021-05-03 18:09 | ECG_ITS ---
Measurements Intervals [place] Rate: 101 P: [place]: 0 QRS: 5 QRSD: 117 T: 10 QT: 363 QTc: 472 Interpretive Statements ATRIAL FIBRILLATION WITH RAPID VENTRICULAR RESPONSE INCOMPLETE RIGHT BUNDLE BRANCH BLOCK LOW QRS VOLTAGE IN PRECORDIAL LEADS CONSIDER INFERIOR INFARCT, AGE INDETERMINATE ABNORMAL ECG Electronically Signed On 05-03-2021 20:18:52 CDT by Ar Cuadra D.O.
--- NOTE | 2021-05-03 19:33 | PC.NURSE ---
here to review EKG and rhytm strips
[2021-05-03] MEDS: FENOFIBRATE NANOCRYSTALLIZED 145 MG TABLET PO (21:05)
[2021-05-03] MEDS: metFORMIN HCL 500 MG TABLET PO (21:06)
[2021-05-03] MEDS: SIMVASTATIN 20 MG TABLET PO (21:06)
[2021-05-03] MEDS: RIVAROXABAN 20 MG TABLET PO (21:06)
--- NOTE | 2021-05-03 23:11 | ECG_ITS ---
Measurements Intervals [place] Rate: 93 P: [place]: 0 QRS: 42 QRSD: 102 T: 40 QT: 382 QTc: 476 Interpretive Statements ATRIAL FIBRILLATION VENTRICULAR PREMATURE COMPLEXES INCOMPLETE RIGHT BUNDLE BRANCH BLOCK LOW QRS VOLTAGE IN PRECORDIAL LEADS BASELINE ARTIFACT- I, III, AVR, AVL, AVF, V1 ABNORMAL ECG Electronically Signed On 05-04-2021 7:42:03 CDT by Ar Cuadra D.O.
--- NOTE | 2021-05-03 23:34 | PC.NURSE ---
ekg obtained after 2100 dose sotalol. QT/QTc 382/433ms. no action required per standing order/loading dosing protocol.
[2021-05-04] VITALS (13 sets, daily range): BP systolic 115–128; BP diastolic 71–105; PULSE 59–131; RESP 15–25; TEMP 35.8–36.7; O2SAT 92–97
[2021-05-04] MEDS: ramipriL 5 MG CAPSULE 10 MG PO (08:52)
[2021-05-04] MEDS: ASPIRIN 81 MG ENTERIC TABLET PO (08:52)
[2021-05-04] MEDS: MAGNESIUM OXIDE 400 MG TABLET PO (08:52)
[2021-05-04] MEDS: hydroCHLOROthiazide 12.5 MG CAPSULE PO (08:52)
[2021-05-04] MEDS: SOTALOL HCL 80 MG TABLET PO (08:53)
--- NOTE | 2021-05-04 10:27 | WPDANESEFPP ---
Anes - Eval Final PreProcedure Day of Procedure 05/04/21 10:27 Patient weight: morbidly obese Heart: irregular rhythm Lungs: clear to auscultation Airway: Mallampati scale class III Neurological: alert and oriented Last oral intake: >/= 8 hours ASA classification: III Emergent: no Anesthetic plan: proceed Anesthesia type and monitoring: general GIVS and standard monitoring Informed Consent: The patient's anesthetic plan and its attendant risks and benefits were discussed with the patient/family/POA. Questions were solicited and answers provided to the satisfaction of the patient/family/POA.
--- NOTE | 2021-05-04 10:56 | P.PCNCC_ITS ---
Cardiac Cath Procedure Note Date of procedure:: 05/04/21 Performing physician:: Vicente Bright MD Indication:: Symptomatic recurrence of atrial fibrillation Brief clinical history:: this is a 60-year-old man with a prior history of coronary disease and paroxysmal atrial fibrillation. He is also morbidly obese. He was admitted to the hospital with a symptomatic episode of recurrent atrial fib. His antiarrhythmic regimen has been advanced to sotalol and he maintains atrial fibrillation. In this setting an attempt at restoring sinus rhythm electrically has been recommended. Procedure Procedure performed:: DC cardioversion Sedation/Medication given:: sedation per Anesthesia Estimated blood loss:: no blood loss Procedure note:: patient was brought to the GI lab in the postabsorptive state where the anesthesia service was in attendance. They provided a deep sedation, please see their separate note for those details. When the patient was adequately sedated with the defibrillator patches in the AP position he was given a shock at 200 joules in a synchronized fashion with the no change in the rhythm. The defibrillator was then increased to 360 joules and a 2nd synchronized shock was delivered again with persistent atrial fibrillation. Findings:: As above Conclusion:: attempted but failed DC cardioversion at both 200 and 360 joules with persistent atrial fibrillation. Vicente Bright MD [facility]
--- NOTE | 2021-05-04 11:01 | PC.NURSE ---
Pt off floor to have cardioversion. RN and monitor with patient.
--- NOTE | 2021-05-04 11:41 | SUR.PHASEII ---
MACIEL Templeton gave report to MACIEL Stern. Patient was transported to Chest pain center. Leena ST taking over care of patient. Patient is in bed on 2L of oxygen and talking to his on the phone
--- NOTE | 2021-05-04 15:14 | PM.DS ---
DS: Admitting Diagnosis Discharge Date 05/04/21 Admitting Diagnosis Shortness of breath DS: Discharge Diagnosis Discharge Diagnosis (1) Atrial fibrillation with RVR: Code(s): I48.91 - Unspecified atrial fibrillation Status: Acute Assessment and Plan: Patient has a hx of AFib and is on Xarelto and Metoprolol on admission. Patient presents to the ED with complaints of SOB and found to have AFib/RVR. EKG confirmed AFib. He was given Diltiazem 10mg once then on a Cardizem drip. Heart rate improved. He has been compliant with his Xarelto and his metoprolol. He was admitted to the IMU. TSH normal. He was seen by Cardiology. After the risks/benefits discussed, his Metoprolol was changed to Sotalol and diltiazem stopped. Xarelto was continued. Patient had recent echocardiogram as outpatient so not repeated. Patient did not convert with Sotalol so he underwent cardioversion that also was unsuccessful. He was changed back to oral Metoprolol and dose was advanced. Plan for patient to follow up with EP. (2) Pulmonary edema: Code(s): J81.1 - Chronic pulmonary edema Status: Acute Assessment and Plan: CXR on admission showing cardiomegaly with mild interstitial edema. Concern for high-output heart failure from recurrent paroxysmal atrial fibrillation. He was given one dose of IV Lasix on admission. Repeat CXR clear. (3) Obstructive sleep apnea: Code(s): G47.33 - Obstructive sleep apnea (adult) (pediatric) Status: Acute Assessment and Plan: Stable. Auto titrating NIV has been ordered. He presumably had hypoxia overnight requiring O2 bleed but not well documented. CXR showing clear lung don[place]. Plan for repeat sleep study as outptient. (4) Essential (primary) hypertension: Code(s): I10 - Essential (primary) hypertension Status: Acute Assessment and Plan: Patient's blood pressure was monitored closely. Blood pressure medications adjusted and BP improved. (5) Morbid obesity with BMI of 40.0-44.9, adult: Code(s): E66.01 - Morbid (severe) obesity due to excess calories; Z68.41 - Body mass index [BMI]40.0-44.9, adult Status: Acute Assessment and Plan: BMI 50. This complicates his other medical problems. Healthy lifestyle encouraged. DS: Summary Hospital Course Reason for hospitalization: 60yo male with SAI, morbid obesity and pAFib here for shortness of breath and found to have recurrent AFib/RVR. Please see H&P for details Hospital Course: Please see above for details of hospital course Status at Discharge Cognitive/behavioral status at discharge: stable Time Spent with Patient Time attestation: Total time spent providing and/or coordinating discharge services: 34 minutes Time spent: Greater than 30 minutes Exam Narrative: AF 96.4 128/105 59 25 97% ra Gen - NARD Chest - CTA bilaterally, nml RR CV - irregularly irregular Abd - Soft, obese, NT, large glenroy-umbilical hernia noted Ext - No pitting pedal edema Psych - Nml mood and affect Skin - Warm and dry Discharge Plan Discharge Attending physician on discharge: Bert Slater Consulting providers: Rajinder King Discharging Clinician: Bert Slater Anticipated Discharge Date/Time: 05/04/21 15:27 Patient Disposition: Home, Self-Care Activity: as tolerated Diet: heart healthy Discharge Instructions: Please avoid large gathering, wear face coverings in public and practice social distance. Check blood pressure 1 to 2 times a day. Record and bring into your doctor for review. Call your doctor if your blood pressure is greater than 180/110. Take precautions to avoid falls. Rise slowly from a lying or sitting position. Pause before standing or walking. Contact your doctor or call 911 and come to the Emergency Room if you have increasing shortness of breath or other worrisome symptoms. Avoid NSAIDs (ibuprofen, naproxen, Aleve). Tyl
== END 2021-05-04 16:57 | disposition home or self-care (01) | DRG 309 ==
LOC: ANHED 23:40 → ANHIMU 05-02 00:08 → ANHCPC 05-02 16:31
PROVIDERS: Emergency Medicine; Specialist; Admitting Provider Internal Medicine; Emergency Provider Emergency Medicine; PCP Family Medicine; Visit Provider Internal Medicine
PROC: 5A2204Z Restoration of Cardiac Rhythm, Single (ICD-10-PCS; principal; 2021-05-04 10:30)
DX: I48.91 Unspecified atrial fibrillation (principal); Z68.43 Body mass index [BMI] 50.0-59.9, adult; I50.32 Chronic diastolic (congestive) heart failure; I11.0 Hypertensive heart disease with heart failure; E66.01 Morbid (severe) obesity due to excess calories; G47.33 Obstructive sleep apnea (adult) (pediatric); I25.10 Atherosclerotic heart disease of native coronary artery without angina pectoris; I25.2 Old myocardial infarction; Z87.891 Personal history of nicotine dependence; Z79.01 Long term (current) use of anticoagulants; Z79.82 Long term (current) use of aspirin; Z79.84 Long term (current) use of oral hypoglycemic drugs; Z79.899 Other long term (current) drug therapy; Z95.5 Presence of coronary angioplasty implant and graft
CPT/HCPCS: 36415; 71046; 80048; 83735; 84443; 84484; 85025; 92960; 93005; 94660; 96374; 96375; 99285; A9270; G0378; J1940; J2250; J7030; J7040

== ENCOUNTER 2021-06-06 07:43 | Outpatient (CLI) | payer BC, SELFPAY ==
--- NOTE | 2021-06-21 14:29 | WPDSLEEPSTUD ---
Sleep Study Date of Study: 06/06/21 <Jolly Guzman DO - Last Filed: 06/21/21 15:57> Ordering Provider: Vicente Salgado MD <Jolly Gzuman DO - Last Filed: 06/21/21 15:57> Interpreting Physician: Jolly Guzman DO <Jolly Guzman DO - Last Filed: 06/21/21 15:57> Sleep Study Type: CPAP Titration <Jolly Guzman DO - Last Filed: 06/21/21 15:57> Height: 1.83 m <Jolly Guzman DO - Last Filed: 06/21/21 15:57> Weight: 156.943 kg <Jolly Guzman DO - Last Filed: 06/21/21 15:57> Body Mass Index: 46.9 <Jolly Guzman DO - Last Filed: 06/21/21 15:57> Neck Circumference (inches): 21 <Jolly Guzman DO - Last Filed: 06/21/21 15:57> [place]: 3 <Jolly Guzman DO - Last Filed: 06/21/21 15:57> Reason for Sleep Study The patient was previously diagnosed with SAI in 2008 and has been on CPAP since. He is currently on CPAP 16 cm H2O with 2 lpm of O2. He was admitted to the hospital on 05/03/2021 for atrial fibrillation with RVR. He was recommended to have a PAP Titration after discharge. <Jolly Guzman DO - Last Filed: 06/21/21 15:57> Sleep History The patient is a 61 y/o male with atrial fibrillation with RVR, HTN, Type 2 DM, HLD, SAI on CPAP and oxygen and history of [place] that had a PAP Titration ordered due to recurrent atrial fibrillation. 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 He frequently awakens from sleep short of breath. He rarely awakens at night with heartburn, belching or cough. He constantly snores loud enough that others complain. He occasionally has trouble sleeping when he has a cold. He occasionally wakes up gasping for air throughout the night. He frequently has breathing problems at night observed by others. He rarely notices heart palpitations throughout the night. He rarely falls asleep during the day and rarely falls asleep while driving. He rarely experiences loss of muscle tone when extremely emotional. He rarely has trouble at work due to sleepiness. He rarely feels unable to move when waking up her falling asleep. He rarely experiences vivid dreamlike scenes upon awakening or falling asleep. He rarely has nightmares. He rarely feels sad or depressed but occasionally feels anxious. He rarely kicks throughout the night. He rarely experiences crawling and aching feelings in his legs as well as leg pain during the night. He denies grinding his teeth during sleep and rarely has jaw pain in the morning. He is really bothered by pain during the day and is rarely awakened by pain during the night. He denies waking up feeling stiff in the morning. the patient goes to bed at 10:00 p.m. on both the weekdays and weekends. It takes him 20 minutes to fall asleep. He wakes up 2 times throughout the night to use the restroom. He takes him about 10 minutes to fall back asleep. He wakes up at 5:30 a.m. on both weekdays and weekends. He will stay in bed for 30 minutes after waking up in the morning. He usually gets 7 hours of sleep per night. He currently lives with his . He does not consume any caffeinated beverages within 2 hours of going to bed. He does not engage in physical exercise before bedtime. He will watch television before falling asleep. He does not take naps in the afternoon or the evening. The patient quit smoking 12 years ago. He used to smoke 1 pack of cigarettes per day. The patient drinks 1 cup of coffee per day. He denies alcohol and recreational drug use. <Jolly Guzman DO - Last Filed: 06/21/21 15:57> [facility] Past Medical History Medical History: Medical History CAD (coronary artery disease) Diastolic dysfunction Echocardiogram October 2020: EF 69%, severe left atrial enlargement, grade 1 diastolic dysfunction Essential (primary) hypertension Morbid obesity with BMI of 40.0-44.9, adult Obstructive sleep apnea
[2021-06-21 14:31] VITALS: BMI 46.9
== END 2021-06-07 07:17 | disposition home or self-care (01) ==
LOC: ANHCSM 07:43
PROVIDERS: PCP Family Medicine; Visit Provider Family Medicine
DX: G47.33 Obstructive sleep apnea (adult) (pediatric) (principal)
CPT/HCPCS: 95811

== ENCOUNTER 2022-01-16 07:37 | Outpatient (CLI) | payer BC, SELFPAY ==
--- NOTE | 2022-01-27 20:48 | WPDSLEEPSTUD ---
Sleep Study Date of Study: 01/16/22 Ordering Provider: Akua Flores MD Interpreting Physician: Akua Flores MD Sleep Study Type: BiPAP Titration Height: 1.83 m Weight: 142.428 kg Body Mass Index: 42.5 Neck Circumference (inches): 17.5 [place]: 2 Reason for Sleep Study History of obstructive sleep apnea, has lost wt, now re-testing to see what his optimal pressure is * 06/06/2021 - CPAP/BiPAP titration; optimal pressure was BIPAP 24/20 with 4 L/min O2. This study was performed after discharge from the hospital after recurrent atrial fibrillation. * prior to the Jun 06, 2021 titration, he was on CPAP 16 cm and 2 L/min O2 with sleep. Sleep History Juan Ariza is a 61 year old man with obstructive sleep apnea, has been on BIPAP 21/17 with O2; he was diagnosed in 2008 and stayed on the same settings for many years. Last fall, when he was recovering from a decompensation, he had a repeat titration, and his new setting was 24/20 with O2 at 4 L/min. He had new a trial fib, an ablation and lost 50-60 lb. he feels that his settings are too high,. He had overnight oximetry 12/04/2021 on BiPAP 21/17 and room air which showed raegan at 84%, oxygen desaturation index 14, and 1.7 ,minutes consecutively spent below 88%. He now presents for a repeat titration. Past medical history includes atrial fibrillation with RVR, HTN, type 2 DM, hyperlipidemia, SAI on CPAP and oxygen and history of [place]. He frequently awakens from sleep short of breath.? He rarely awakens at night with heartburn, belching or coughing.? He constantly snores loudly enough that others complain.? He occasionally has trouble sleeping with a cold.? He occasionally wakes up gasping for air during the night.? He frequently has breathing problems at night observed by others.? He rarely notices heart palpitations throughout the night.? He rarely falls asleep during the day and rarely falls asleep while driving.? He rarely experiences loss of muscle tone when extremely emotional.? He rarely has trouble at work due to sleepiness.? He rarely feels unable to move when waking or falling asleep.? He rarely experiences vivid dreamlike scenes upon awakening or falling asleep.? He rarely has nightmares.? He rarely feels sad or depressed but occasionally feels anxious.? He rarely kicks throughout the night.? He rarely experiences crawling and aching feelings in his legs as well as leg pain during the night.? He denies grinding his teeth during sleep and rarely has jaw pain in the morning.? He is rarely bothered by pain during the day and is rarely awakened by pain during the night.? He denies waking up feeling stiff in the morning. Normal bedtime is 10:00 p.m., taking 20 minutes to fall asleep.? He wakes up 2 times throughout the night to use the restroom.? He takes him about 10 minutes to fall back asleep.? He wakes up at 5:30 a.m. on both weekdays and weekends.? He estimates getting 7 hours of sleep per night.? He currently lives with his .? He does not consume any caffeinated beverages within 2 hours of going to bed.? He does not take naps in the afternoon or the evening.? Habits: Former smoker, quit 12 years ago, smoked 1 pack of cigarettes per day.? The patient drinks 1 cup of coffee per day.? He denies alcohol and recreational drug use. [facility] Past Medical History Medical History CAD (coronary artery disease) Diastolic dysfunction Echocardiogram October 2020: EF 69%, severe left atrial enlargement, grade 1 diastolic dysfunction Essential (primary) hypertension Morbid obesity with BMI of 40.0-44.9, adult Obstructive sleep apnea CPAP of 20 Paroxysmal A-fib (10/2020) Pericarditis Prediabetes Umbilical hernia without obstruction or gangrene Not repaired Surgical History Surgical History History of cardiac catheterization Two stents placed [address] Bright History of cardiac
[2022-01-27 21:41] VITALS: BMI 42.5
== END 2022-01-17 06:54 | disposition home or self-care (01) ==
LOC: ANHCSM 07:39
PROVIDERS: PCP Family Medicine; Visit Provider Internal Medicine Critical Care Medicine
DX: G47.33 Obstructive sleep apnea (adult) (pediatric) (principal)
CPT/HCPCS: 95811

== ENCOUNTER 2022-07-29 00:46 | Day surgery (SDC) | payer BC, SELFPAY ==
[2022-07-15 09:30] VITALS: BMI 41.8
[2022-07-29 06:57] VITALS: BP 130/77; PULSE 65; RESP 17; TEMP 36.1; O2SAT 93; BMI 43.2
[2022-07-29] MEDS: LACTATED RINGERS 1,000 ML 150 ML IV CONT (07:07)
--- NOTE | 2022-07-29 07:35 | WPDANESEPPF ---
Anes - Initial Pre Proc Eval Procedure: Operation Date: 07/29/22 08:00 Proposed Procedures p Screening Colonoscopy - Negro Cruz MD Date/Time: 07/29/22 07:35 Surgeon: Negro Cruz MD Pre Op Diagnosis: neoplasm screening Patient Data Age: 62 Gender: M Height: 1.83 m Weight: 144.6 kg Last Vital Signs Temp 36.1 C L 07/29/22 06:57 Pulse 65 07/29/22 06:57 Resp 17 07/29/22 06:57 BP 130/77 07/29/22 06:57 Pulse Ox 93 07/29/22 06:57 O2 Del Method Room Air 07/29/22 06:57 Allergies Allergy/AdvReac Type Severity Reaction Status Date / Time Tetanus Vaccines and Toxoid Allergy Mild Rash Verified 07/29/22 06:56 Home Medications Medication Instructions Recorded Confirmed Type rivaroxaban 20 mg tablet (Xarelto) 20 mg PO HS 05/01/21 07/29/22 History lisinopril 2.5 mg tablet 2.5 mg PO DAILY PRN High BP 07/04/21 07/29/22 History metoprolol succinate 50 mg 150 mg PO QAM 07/18/21 07/29/22 History tablet,extended release 24 hr fenofibric acid (choline) 135 mg See Rx Instructions .Route 10/29/21 07/29/22 Rx capsule,delayed release .COMPLEX #90 caps dapagliflozin 10 mg tablet 10 mg PO QAM 11/22/21 07/29/22 History (Farxiga) furosemide 40 mg tablet 40 mg PO QAM PRN Swelling 11/22/21 07/29/22 History mv-min-vit C 1,000 1 ea PO DAILY 11/22/21 07/29/22 History ix-fhtialipp-qoqrzz-herb 124 50 mg efferves tablet (Airborne) spironolactone 25 mg tablet 25 mg PO DAILY 11/22/21 07/29/22 History atorvastatin 20 mg tablet 20 mg PO QHS #90 tabs 04/12/22 07/29/22 Rx Patient hx anesthesia problems: none Family hx anesthesia problems: none Results Review: All pre-operative results and documents have been reviewed as part of the pre-operative evaluation. [facility] Past Medical History Medical History CAD (coronary artery disease) Diastolic dysfunction Echocardiogram October 2020: EF 69%, severe left atrial enlargement, grade 1 diastolic dysfunction Essential (primary) hypertension Morbid obesity with BMI of 40.0-44.9, adult Obstructive sleep apnea CPAP of 20 Paroxysmal A-fib (10/2020) Pericarditis Prediabetes Umbilical hernia without obstruction or gangrene Not repaired Surgical History Surgical History History of cardiac catheterization Two stents placed [address] Bright History of cardiac radiofrequency ablation (RFA) History of tonsillectomy and adenoidectomy Family History Family History Grandparent Family history of alcoholism Family history of hepatitis Mother Acute myocardial infarction, Onset Age: 72 Father Primary bone cancer, Onset Age: 72 Sibling Multiple sclerosis Social History Social History Social History: He lives in [place] with his . He is a CPA. He used to smoke a pack of cigarettes per day but quit 2008 when he had his heart attack. He used to drink quite heavily in consumed a case of beer over the weekend but quit drinking in 2008 as well. He denies any illicit substance use. Primary care physician: Dr. Vicente Salgado Code status: Full code Surrogate decision maker: Smoking packs per day: 1 Smoking cigarettes per day: 20.0 Years smoked: 29 Smoking pack-years: 29.00 Smoking status: Former smoker (stopped 12 years ago) Smoking end date: 08/25/08 Alcohol intake: former Substance use: never Other substance usage details: quit drinking in 2008 Living arrangements: with family Spiritual care concerns: No Anes - Eval Final PreProcedure Day of Procedure 07/29/22 07:35 Patient weight: morbidly obese Heart: regular rate and rhythm Lungs: clear to auscultation Airway: Mallampati scale class II Neurological: alert and oriented Last oral intake: >
--- NOTE | 2022-07-29 07:51 | PM.HPGS ---
History of Present Illness History of Present Illness Consent: Risks, benefits, and alternatives have been discussed and questions answered. Patient agrees to proceed with procedure. Chief complaint: neoplasm screening Narrative: Juan Ariza is a 62 year old male Presents for screening colonoscopy. Patient's current weight appetite bowel movements are normal. He denies abdominal pain. Patient has had no bleeding. Family history noncontributory. Patient presents for screening colonoscopy. His last colonoscopy 2009 was unremarkable. Patient has a recent history of ablation for atrial fibrillation. He remains on Xarelto despite being in normal sinus rhythm at this point. Xarelto will be held for procedure. Review of Systems Review of Systems: Review of systems noncontributory. [facility] Past Medical History Medical History CAD (coronary artery disease) Diastolic dysfunction Echocardiogram October 2020: EF 69%, severe left atrial enlargement, grade 1 diastolic dysfunction Essential (primary) hypertension Morbid obesity with BMI of 40.0-44.9, adult Obstructive sleep apnea CPAP of 20 Paroxysmal A-fib (10/2020) Pericarditis Prediabetes Umbilical hernia without obstruction or gangrene Not repaired Surgical History Surgical History History of cardiac catheterization Two stents placed [address] Bright History of cardiac radiofrequency ablation (RFA) History of tonsillectomy and adenoidectomy Family History Family History Grandparent Family history of alcoholism Family history of hepatitis Mother Acute myocardial infarction, Onset Age: 72 Father Primary bone cancer, Onset Age: 72 Sibling Multiple sclerosis Social History Social History Social History: He lives in [place] with his . He is a CPA. He used to smoke a pack of cigarettes per day but quit 2008 when he had his heart attack. He used to drink quite heavily in consumed a case of beer over the weekend but quit drinking in 2008 as well. He denies any illicit substance use. Primary care physician: Dr. Vicente Salgado Code status: Full code Surrogate decision maker: Smoking packs per day: 1 Smoking cigarettes per day: 20.0 Years smoked: 29 Smoking pack-years: 29.00 Smoking status: Former smoker (stopped 12 years ago) Smoking end date: 08/25/08 Alcohol intake: former Substance use: never Other substance usage details: quit drinking in 2008 Living arrangements: with family Spiritual care concerns: No Meds Home Medications and Allergies Home Medications Medication Instructions Recorded Confirmed Type rivaroxaban 20 mg tablet (Xarelto) 20 mg PO HS 05/01/21 07/29/22 History lisinopril 2.5 mg tablet 2.5 mg PO DAILY PRN High BP 07/04/21 07/29/22 History metoprolol succinate 50 mg 150 mg PO QAM 07/18/21 07/29/22 History tablet,extended release 24 hr fenofibric acid (choline) 135 mg See Rx Instructions .Route 10/29/21 07/29/22 Rx capsule,delayed release .COMPLEX #90 caps dapagliflozin 10 mg tablet 10 mg PO QAM 11/22/21 07/29/22 History (Farxiga) furosemide 40 mg tablet 40 mg PO QAM PRN Swelling 11/22/21 07/29/22 History mv-min-vit C 1,000 1 ea PO DAILY 11/22/21 07/29/22 History xc-cqujvcwht-vubvxs-herb 124 50 mg efferves tablet (Airborne) spironolactone 25 mg tablet 25 mg PO DAILY 11/22/21 07/29/22 History atorvastatin 20 mg tablet 20 mg PO QHS #90 tabs 04/12/22 07/29/22 Rx Allergies Allergy/AdvReac Type Severity Reaction Status Date / Time Tetanus Vaccines and Toxoid Allergy Mild Rash Verified 07/29/22 06:56 Vital Signs Vital Signs - 24 hr 07/29/22 06:57 Temperature 96.9 F L Pulse Rate 65 Respiratory Rate 17 Blood Pr
[2022-07-29 08:24] VITALS: BP 95/59; PULSE 61; RESP 21; O2SAT 95
[2022-07-29 08:34] VITALS: BP 107/71; PULSE 61; RESP 19; O2SAT 94
[2022-07-29 08:44] VITALS: BP 108/71; PULSE 57; RESP 22; O2SAT 93
== END 2022-07-29 08:52 | disposition home or self-care (01) ==
PROVIDERS: PCP Family Medicine; Visit Provider Internal Medicine Gastroenterology
PROC: 0DJD8ZZ Inspection of Lower Intestinal Tract, Via Natural or Artificial Opening Endoscopic (ICD-10-PCS; CPT 45378; principal; 2022-07-29 08:00)
DX: Z12.11 Encounter for screening for malignant neoplasm of colon (principal); K64.8 Other hemorrhoids; K63.5 Polyp of colon; I25.10 Atherosclerotic heart disease of native coronary artery without angina pectoris; I11.9 Hypertensive heart disease without heart failure; I48.0 Paroxysmal atrial fibrillation; G47.33 Obstructive sleep apnea (adult) (pediatric); I25.2 Old myocardial infarction; R73.03 Prediabetes; E66.01 Morbid (severe) obesity due to excess calories; Z68.41 Body mass index [BMI] 40.0-44.9, adult; Z79.01 Long term (current) use of anticoagulants; Z79.84 Long term (current) use of oral hypoglycemic drugs; Z95.5 Presence of coronary angioplasty implant and graft; Z87.891 Personal history of nicotine dependence
CPT/HCPCS: 45385; 88305; J2704; J7120

== ENCOUNTER → 2023-04-30 13:13 | Outpatient (CLI) | payer BC, SELFPAY ==
--- NOTE | ~2023-04-30 | CT_ITS ---
EXAMINATION: CT abdomen pelvis wo con DATE: 04/30/2023 13:29 INDICATION: Ventral hernia without obstruction TECHNIQUE: Computed tomography (CT) of the abdomen and pelvis was performed without intravenous contr ast. The dose-length product (DLP) was 1255.88 mGy-cm. Automated exposure control and iterative recon struction technique were employed. COMPARISON: None FINDINGS: Minimal dependent atelectasis is present in the lung bases. The heart size is normal. Calci fied atherosclerosis is noted. There is minimal right gynecomastia. Stones are present in the nondist ended gallbladder. The liver, spleen, pancreas, and adrenal glands are normal. The kidneys are unrema rkable. There is an umbilical hernia containing small bowel. The upstream small bowel is dilated and the small bowel beyond the hernia is decompressed. There is no free intraperitoneal gas. No pathologi yadira enlarged abdominal or pelvic lymph nodes are identified. There are bridging osteophytes at mult iple levels in the lower thoracic spine, consistent with diffuse idiopathic skeletal hyperostosis (DI SH). There is moderate lumbar spondylosis. IMPRESSION: 1. Umbilical hernia containing small bowel resulting in upstream small bowel obstruction. 2. Cholelithiasis without evidence of cholecystitis. Reviewed, dictated and finalized at location B. IMPRESSION: 1. Umbilical hernia containing small bowel resulting in upstream small bowel ob struction. 2. Cholelithiasis without evidence of cholecystitis.
== END ==
PROVIDERS: PCP Family Medicine; Visit Provider Nurse Practitioner Family
DX: K43.9 Ventral hernia without obstruction or gangrene (principal); K42.9 Umbilical hernia without obstruction or gangrene; K80.20 Calculus of gallbladder without cholecystitis without obstruction
CPT/HCPCS: 74176

== ENCOUNTER → 2024-05-26 15:22 | Outpatient (REF) | payer BC, SELFPAY | LOC: ANHLAB 15:22 | PROVIDERS: PCP Family Medicine; Visit Provider Plastic Surgery | DX: L72.0 Epidermal cyst (principal) | CPT/HCPCS: 88305 ==

== ENCOUNTER 2025-04-14 10:14 | Outpatient (CLI) | payer MEDICARE, OTHER, SELFPAY ==
--- NOTE | ~2025-04-14 | XR_ITS ---
Right Knee Technique: AP, lateral, and sunrise views were obtained. Clinical History: Internal arrangement Findings: No fracture or dislocation is seen. Osseous alignment is anatomic. There is moderate tricompartmental degenerative change. Soft tissues are unremarkable. No joint effusion is seen. Impression: Moderate tricompartmental degenerative change. Reviewed, dictated and finalized at [facility]. Impression: Moderate tricompartmental degenerative change.
== END 2025-04-14 10:15 | disposition home or self-care (01) ==
LOC: GOSHIMG 10:14
PROVIDERS: PCP Family Medicine; Visit Provider Family Medicine
DX: M23.91 Unspecified internal derangement of right knee (principal); M17.11 Unilateral primary osteoarthritis, right knee
CPT/HCPCS: 73564